=== PATIENT | female | born 1955 | race Caucasian/White ===

== ENCOUNTER 2019-05-28 10:19 | Emergency (ER) | payer MEDICAID ==
--- NOTE | 2019-05-28 11:24 | EDM.PDOC ---
ED HPI GENERAL MEDICAL PROBLEM - General Chief Complaint: General Stated Complaint: NOT AWARE OF SURROUNDINGS Time Seen by Provider: 05/28/19 10:40 Source of Information: Reports: Patient, Family (Daughter) History Limitations: Reports: Altered Mental Status (Patient is a poor historian ) - History of Present Illness INITIAL COMMENTS - FREE TEXT/NARRATIVE: Mrs. Dominguez is a very pleasant 64-year-old woman with a past medical history significant for paroxysmal atrial fibrillation, CHF, likely asthma, hepatitis C , started on treatment in February 2019, and cirrhosis, who is now brought to the ED by her daughter Robina, who tells me that she moved her mother up from [place], [place] in April, shortly after she got out of the hospital, where she was told that she likely had Stage III liver cancer. She has established with a PCP here in [place] and had some imaging studies performed, but has not yet undergone any biopsies or been assigned an Oncologist. Robina tells me that the patient has had 3 to 4 days of progressively worsening slurred speech, confusion, and poor memory. For example, the patient has twice thought that she had close on when she did not. She urinated on the bathroom floor, apparently thinking that she was on the toilet, she took dishes into the bathroom, apparently thinking it was the kitchen, and she has been sleeping up to 15 hours/day. Her symptoms have become even more severe over the past 48 hours. The patient reports having some chills, but no fever. She has had nausea, but no emesis. She reports pelvic cramps that feel much like menstrual cramps, and she reports urinary urgency, although no dysuria. The patient's daughter tells me, however, that the patient's urine is malodorous. No recent cough, dyspnea, constipation, diarrhea, weight gain or weight loss, bloody bowel movements or black bowel movements, joint aches, headaches, or rashes. Here in the ED, the patient is found to be hemodynamically stable, afebrile, saturating 100% on room air. The patient's PCP is Dr. Delgado Feliciano. She has an appointment to see Dr. Feliciano on 06/05/2019. - Related Data Allergies Allergy/AdvReac Type Severity Reaction Status Date / Time No Known Allergies Allergy Verified 05/28/19 10:40 Home Meds: Home Meds Cyclobenzaprine [Flexeril] 5 mg PO TID PRN 05/28/19 [History] Diclofenac Sodium [Voltaren 1% Gel] 1 appful TOP QID PRN 05/28/19 [History] Furosemide [Lasix] 20 mg PO DAILY 05/28/19 [History] Gabapentin [Neurontin] 1,200 mg PO TID 05/28/19 [History] Lactulose 10 ml PO TID 05/28/19 [History] Lidocaine 5% [Lidoderm 5%] 1 patch TOP Q12HR PRN 05/28/19 [History] Melatonin 10 mg PO QPM 05/28/19 [History] Pantoprazole [ProTONIX] 40 mg PO DAILY 05/28/19 [History] Spironolactone [Aldactone] 50 mg PO DAILY 05/28/19 [History] hydrOXYzine HCL [hydrOXYzine] 25 mg PO BID 05/28/19 [History] oxyCODONE 5 mg PO Q8HR PRN 05/28/19 [History] Past Medical History Cardiovascular History: Reports: Afib (paroxysmal), Heart Failure Respiratory History: Reports: Asthma (suspected, not tested) Gastrointestinal History: Reports: Cirrhosis, GERD, PUD Genitourinary History: Reports: Urinary Incontinence (stress incontinence) Musculoskeletal History: Reports: Arthritis Neurological History: Reports: TIA (x 2) Psychiatric History: Reports: Anxiety Oncologic (Cancer) History: Reports: Liver (suspected Stage III) - Infectious Disease History Infectious Disease History: Reports: Hepatitis C - Past Surgical History HEENT Surgical History: Reports: Oral Surgery (edentulous) GI Surgical History: Reports: Bariatric Procedure (gastric bypass x 2?) Female Surgical History: Reports: Tubal Ligation Social & Family History - Family History Family Medical History: Noncontributory - Tobacco Use Smoking Status *Q: Current Some Day Smoker Tobacco Use Within Last Twelve Months: Vaping Years of Tobacco use: 46 Packs/Tins Daily Comment: Down from 04/05 ppd - Caffeine Use Caffeine Use: Reports: Soda, Tea - Alcohol Use Alcohol Use History: Yes Alcohol Use Frequency: Rarely - Recreational Drug Use Recreational Drug Use: Yes Drug Use in Last 12 Months: Yes Recreational Drug Type: Reports: Marijuana/Hashish (last smoked 04/15/2019), Methamphetamine (last smoked, injected 2006) - Living Situation & Occupation Living situation: Reports: ( incarcerated), with Family (Daughter , her , their 2 kids) Occupation: Unemployed ED ROS GENERAL - Review of Systems Review Of Systems: Comprehensive ROS is negative, except as noted in HPI. - Physical Exam Exam: See Below Exam Limited By: No Limitations General Appearance: No Apparent Distress, Other (Awake, slightly lethargic) Eye Exam: Bilateral Eye: EOMI, Normal Inspection, PERRL Ears: Normal External Exam, Normal Canal, Hearing Grossly Normal, Normal TMs Nose: Normal Inspection, Normal Mucosa, No Blood Throat/Mouth: Normal Inspection, Normal Lips, Normal Gums, Normal Oropharynx, Normal Voice, No Airway Compromise, Other (Edentulous) Head Exam: Atraumatic, Normocephalic Neck: Normal Inspection, Supple, Non-Tender, Full Range of Motion. No: Lymphadenopathy (L), Lymphadenopathy (R) Respiratory/Chest: No Respiratory Distress, Lungs Clear, Normal Breath Sounds, No Accessory Muscle Use Cardiovascular: Normal Peripheral Pulses, Regular Rate, Rhythm, No Edema, No Gallop, No JVD, No Murmur, No Rub GI/Abdominal: Normal Bowel Sounds, Soft, Non-Tender, No Organomegaly, No Distention, No Abnormal Bruit, No Mass (Female) Exam: Deferred Rectal (Female) Exam: Deferred Neuro Exam (Abbreviated): Alert, CN II-XII Intact (claimed diplopia, and had some difficulty following some commands), No Motor/Sensory Deficits, Confused, Memory Loss Recent Events, Other (Generally weak) Back Exam: Normal Inspection, Full Range of Motion, NT Extremities: Normal Inspection, Normal Range of Motion, No Pedal Edema, Normal Capillary Refill Psychiatric: Normal Affect Skin Exam: Warm, Dry, Intact, Normal Color, No Rash EKG INTERPRETATION EKG Date: 05/28/19 Time: 11:22 Rhythm: NSR Rate (Beats/Min): 88 [place]: Normal P-Wave: Present QRS: Normal ST-T: Normal QT: Normal Comparison: NA - No Prior EKG Course - Vital Signs Last Recorded V/S: Last Vital Signs Temp 36.9 C 05/28/19 10:35 Pulse 93 05/28/19 10:35 Resp 13 05/28/19 10:35 BP 113/85 05/28/19 10:35 Pulse Ox 100 05/28/19 10:35 - Orders/Labs/Meds Orders: Active Orders 24 hr Category Date Time Status EKG Documentation Completion [RC] STAT Care 05/28/19 11:14 Active CULTURE URINE [RM] Stat Lab 05/28/19 16:19 Ordered Labs: Laboratory Tests 05/28/19 05/28/19 05/28/19 Range/Units 11:31 11:31 11:31 WBC 4.43 (3.98-10.04) K/mm3 RBC 4.53 (3.98-5.22) M/mm3 Hgb 14.6 (11.2-15.7) gm/dl Hct 44.2 (34.1-44.9) % MCV 97.6 H (79.4-94.8) fl MCH 32.2 (25.6-32.2) pg MCHC 33.0 (32.2-35.5) g/dl RDW Std Deviation 61.3 H (36.4-46.3) fL Plt Count 128 L (182-369) K/mm3 MPV 10.5 (9.4-12.3) fl Neutrophils % (Manual) 57 (40-60) % Band Neutrophils % 0 (0-10) % Lymphocytes % (Manual) 30 (20-40) % Atypical Lymphs % 0 % Monocytes % (Manual) 11 H (2-10) % Eosinophils % (Manual) 2 (0.7-5.8) % Basophils % (Manual) 0 L (0.1-1.2) Platelet Estimate Adequate Anisocytosis 1+ slight RBC Morph Comment Not Reportable PT (9.7-12.0) SECONDS INR APTT (22-31) SECONDS Sodium 141 (136-145) mEq/L Potassium 4.3 (3.5-5.1) mEq/L Chloride 107 (98-107) mEq/L Carbon Dioxide 21 (21-32) mEq/L Anion Gap 17.3 H (5-15) BUN 15 (7-18) mg/dL Creatinine 1.0 (0.55-1.02) mg/dL Est Cr Clr Drug Dosing 48.25 mL/min Estimated GFR (MDRD) 56 (>60) mL/min BUN/Creatinine Ratio 15.0 (14-18) Glucose 81 (80-115) mg/dL Calcium 9.0 (8.5-10.1) mg/dL Magnesium 1.8 (1.8-2.4) mg/dl Total Bilirubin 1.0 (0.2-1.0) mg/dL AST 226 H (15-37) U/L ALT 158 H (14-59) U/L Alkaline Phosphatase 170 H (46-116) U/L Ammonia (11-32) umol/L Troponin I < 0.017 (0.00-0.056) ng/mL Total Protein 8.5 H (6.4-8.2) g/dl Albumin 2.6 L (3.4-5.0) g/dl Globulin 5.9 gm/dL Albumin/Globulin Ratio 0.4 L (1-2) TSH 3rd Generation 2.240 (0.358-3.74) uIU/mL Urine Color (Yellow) Urine Appearance (Clear) Urine pH (5.0-8.0) Ur Specific Ione (1.005-1.030) Urine Protein (Negative) Urine Glucose (UA) (Negative) Urine Ketones (Negative) Urine Occult Blood (Negative) Urine Nitrite (Negative) Urine Bilirubin (Negative) Urine Urobilinogen (0.2-1.0) Ur Leukocyte Esterase (Negative) Urine RBC (0-5) /hpf Urine WBC (0-5) /hpf Ur Squamous Epith Cells (0-5) /hpf Urine Bacteria (FEW) /hpf Urine Mucus (FEW) /hpf Salicylates 0.1 L (2.8-20) mg/dL Urine Opiates Screen (BEOLVW=052) Ur Buprenorphine Scrn (CUTOFF=10) Ur Oxycodone Screen (FWX0DI=416) Urine Methadone Screen (ZPPSYB=448) Ur Propoxyphene Screen (OQODPA=916) Acetaminophen 4 L (10-30) ug/mL Ur Barbiturates Screen (OEFYPR=319) Ur Tricyclics Screen (GYHOYH=509) Ur Phencyclidine Scrn (CUTOFF=25) Ur Amphetamine Screen (HVNWGK=619) U Methamphetamines Scrn (PHMHPN=259) U Benzodiazepines Scrn (PWXUFW=674) U Cocaine Metab Screen (MUOBJI=730) U Marijuana (THC) Screen (CUTOFF=50) Ethyl Alcohol 0.00 (0.00) gm% 05/28/19 05/28/19 05/28/19 Range/Units 11:31 11:31 12:20 WBC (3.98-10.04) K/mm3 RBC (3.98-5.22) M/mm3 Hgb (11.2-15.7) gm/dl Hct (34.1-44.9) % MCV (79.4-94.8) fl MCH (25.6-32.2) pg MCHC (32.2-35.5) g/dl RDW Std Deviation (36.4-46.3) fL Plt Count (182-369) K/mm3 MPV (9.4-12.3) fl Neutrophils % (Manual) (40-60) % Band Neutrophils % (0-10) % Lymphocytes % (Manual) (20-40) % Atypical Lymphs % % Monocytes % (Manual) (2-10) % Eosinophils % (Manual) (0.7-5.8) % Basophils % (Manual) (0.1-1.2) Platelet Estimate Anisocytosis RBC Morph Comment PT 13.2 H (9.7-12.0) SECONDS INR 1.23 APTT 28 (22-31) SECONDS Sodium (136-145) mEq/L Potassium (3.5-5.1) mEq/L Chloride (98-107) mEq/L Carbon Dioxide (21-32) mEq/L Anion Gap (5-15) BUN (7-18) mg/dL Creatinine (0.55-1.02) mg/dL Est Cr Clr Drug Dosing mL/min Estimated GFR (MDRD) (>60) mL/min BUN/Creatinine Ratio (14-18) Glucose (80-115) mg/dL Calcium (8.5-10.1) mg/dL Magnesium (1.8-2.4) mg/dl Total Bilirubin (0.2-1.0) mg/dL AST (15-37) U/L ALT (14-59) U/L Alkaline Phosphatase (46-116) U/L Ammonia 54 H (11-32) umol/L Troponin I (0.00-0.056) ng/mL Total Protein (6.4-8.2) g/dl Albumin (3.4-5.0) g/dl Globulin gm/dL Albumin/Globulin Ratio (1-2) TSH 3rd Generation (0.358-3.74) uIU/mL Urine Color Yellow (Yellow) Urine Appearance Clear (Clear) Urine pH 7.0 (5.0-8.0) Ur Specific [place] 1.025 (1.005-1.030) Urine Protein Negative (Negative) Urine Glucose (UA) Negative (Negative) Urine Ketones Negative (Negative) Urine Occult Blood Negative (Negative) Urine Nitrite Negative (Negative) Urine Bilirubin Negative (Negative) Urine Urobilinogen 0.2 (0.2-1.0) Ur Leukocyte Esterase Negative (Negative) Urine RBC 0-5 (0-5) /hpf Urine WBC 0-5 (0-5) /hpf Ur Squamous Epith Cells 0-5 (0-5) /hpf Urine Bacteria Many H (FEW) /hpf Urine Mucus Not seen (FEW) /hpf Salicylates (2.8-20) mg/dL Urine Opiates Screen (JMVQSJ=643) Ur Buprenorphine Scrn (CUTOFF=10) Ur Oxycodone Screen (UAY9IA=026) Urine Methadone Screen (JEZXNS=982) Ur Propoxyphene Screen (LUQGFA=526) Acetaminophen (10-30) ug/mL Ur Barbiturates Screen (YJYTPK=179) Ur Tricyclics Screen (MARZHM=475) Ur Phencyclidine Scrn (CUTOFF=25) Ur Amphetamine Screen (UHOYFA=491) U Methamphetamines Scrn (WOPRGW=401) U Benzodiazepines Scrn (MFWIJO=251) U Cocaine Metab Screen (COJDYX=561) U Marijuana (THC) Screen (CUTOFF=50) Ethyl Alcohol (0.00) gm% 05/28/19 Range/Units 12:32 WBC (3.98-10.04) K/mm3 RBC (3.98-5.22) M/mm3 Hgb (11.2-15.7) gm/dl Hct (34.1-44.9) % MCV (79.4-94.8) fl MCH (25.6-32.2) pg MCHC (32.2-35.5) g/dl RDW Std Deviation (36.4-46.3) fL Plt Count (182-369) K/mm3 MPV (9.4-12.3) fl Neutrophils % (Manual) (40-60) % Band Neutrophils % (0-10) % Lymphocytes % (Manual) (20-40) % Atypical Lymphs % % Monocytes % (Manual) (2-10) % Eosinophils % (Manual) (0.7-5.8) % Basophils % (Manual) (0.1-1.2) Platelet Estimate Anisocytosis RBC Morph Comment PT (9.7-12.0) SECONDS INR APTT (22-31) SECONDS Sodium (136-145) mEq/L Potassium (3.5-5.1) mEq/L Chloride (98-107) mEq/L Carbon Dioxide (21-32) mEq/L Anion Gap (5-15) BUN (7-18) mg/dL Creatinine (0.55-1.02) mg/dL Est Cr Clr Drug Dosing mL/min Estimated GFR (MDRD) (>60) mL/min BUN/Creatinine Ratio (14-18) Glucose (80-115) mg/dL Calcium (8.5-10.1) mg/dL Magnesium (1.8-2.4) mg/dl Total Bilirubin (0.2-1.0) mg/dL AST (15-37) U/L ALT (14-59) U/L Alkaline Phosphatase (46-116) U/L Ammonia (11-32) umol/L Troponin I (0.00-0.056) ng/mL Total Protein (6.4-8.2) g/dl Albumin (3.4-5.0) g/dl Globulin gm/dL Albumin/Globulin Ratio (1-2) TSH 3rd Generation (0.358-3.74) uIU/mL Urine Color (Yellow) Urine Appearance (Clear) Urine pH (5.0-8.0) Ur Specific [place] (1.005-1.030) Urine Protein (Negative) Urine Glucose (UA) (Negative) Urine Ketones (Negative) Urine Occult Blood (Negative) Urine Nitrite (Negative) Urine Bilirubin (Negative) Urine Urobilinogen (0.2-1.0) Ur Leukocyte Esterase (Negative) Urine RBC (0-5) /hpf Urine WBC (0-5) /hpf Ur Squamous Epith Cells (0-5) /hpf Urine Bacteria (FEW) /hpf Urine Mucus (FEW) /hpf Salicylates (2.8-20) mg/dL Urine Opiates Screen Negative (RIVVVA=665) Ur Buprenorphine Scrn Negative (CUTOFF=10) Ur Oxycodone Screen Presumptive positive H (KPE5BN=572) Urine Methadone Screen Negative (OMQCXF=746) Ur Propoxyphene Screen Negative (AWBHKL=253) Acetaminophen (10-30) ug/mL Ur Barbiturates Screen Negative (IABOLZ=428) Ur Tricyclics Screen Negative (JGKJQN=603) Ur Phencyclidine Scrn Negative (CUTOFF=25) Ur Amphetamine Screen Negative (MCHIJR=852) U Methamphetamines Scrn Negative (ZAHIFT=262) U Benzodiazepines Scrn Negative (CFMZKR=925) U Cocaine Metab Screen Negative (SFPFKK=647) U Marijuana (THC) Screen Presumptive positive H (CUTOFF=50) Ethyl Alcohol (0.00) gm% - Re-Assessments/Exams Free Text/Narrative Re-Assessment/Exam: 05/28/19 11:17 With a history of cirrhosis and now 3 to 4 days of progressively worsening confusion, the patient is most likely suffering from hepatic encephalopathy. I have ordered a work-up that includes blood work, a urinalysis, a urine drug screen, and an ECG. At this time, however, I do not see an indication for any imaging studies, but I did order a CT of her head because of her history of metastatic disease, and her inability to follow all of the instructions for her neurologic examination. 05/28/19 12:43 CT of the head without contrast as read by Dr. Griggs as: 1. Nothing acute is appreciated on noncontrast head CT exam. 05/28/19 13:46 The patient's CBC is remarkable for platelets depressed at 128, and is otherwise unremarkable. Her CMP is remarkable for an anion gap slightly elevated at 17.3, but with a bicarbonate normal at 21. Her AST/ALT are elevated at 226/158, and her alkaline phosphatase is modestly elevated at 170. The remainder of her CMP is unremarkable. Her magnesium level is within normal limits at 1.8. Her troponin is undetectably low. Her TSH is within normal limits at 2.240. Her ammonia level is elevated at 54. Her acetaminophen level is within normal limits at 4. Her salicylate level is within normal limits at 0.1. Her EtOH level is 0.00. Her PT is mildly elevated at 13.2, and her INR is elevated at 1.32. Her urinalysis is remarkable for many bacteria, but is otherwise unremarkable. Her urine drug screen is positive for both oxycodone and marijuana, but is otherwise negative. 05/28/19 14:32 Test results discussed with the patient and her daughter, Robina. The patient' s work-up indicates that the patient's altered mental status is likely due to a combination of hepatic encephalopathy and delirium oxycodone and Flexeril, as both are hepatically metabolized. The patient is currently on lactulose 10 ml times a day, and oxycodone 5 mg Q 8 hours. She is also prescribed Flexeril which she is given infrequently, although she was given a dose this morning. Robina states that she does not know the specific diagnosis for which the patient is given oxycodone, only that she cannot move if she does not take it. I would like to see the patient admitted or placed into observation while she is given an increased dose of lactulose, to see if her mental status improves, however, I do not know if the patient meets criteria. When I discussed this with Robina, she became hostile. She would like to see her mother admitted, but only to this hospital, not to [place], and if we do not have availability at this hospital, we need to figure it out. If we transfer her to [place], she would need to go by ambulance, and we would need to guarantee that she would be given transportation back here after discharge, because Robina is not driving to [place]. We contacted Dr. Trevizo. She will come to the ED to discuss the case. 05/28/19 16:[address] Trevizo here in the ED, at 16:15. She does not feel that the patient meets criterion for admission. She recommends that the patient increase her lactulose to 20 ml TID and follow-up with Dr. Feliciano at her previously scheduled appointment on 06/05/2019. She would not treat the bacteriuria with an antibiotic, but does agree with a urine culture. 05/28/19 16:25 The above was discussed with the patient's daughter, Robina, over the phone. She had left to go home to take medications, but will return to collect her mother. Departure - Departure Time of Disposition: 16:25 Disposition: Home, Self-Care 01 Condition: Good Clinical Impression: Hepatic encephalopathy, Opioid intoxication delirium - Discharge Information *PRESCRIPTION DRUG MONITORING PROGRAM REVIEWED*: Not Applicable *COPY OF PRESCRIPTION DRUG MONITORING REPORT IN PATIENT DIALLO: Not Applicable Referrals: Delgado Feliciano MD [Primary Care Provider] - Forms: ED Department Discharge Additional Instructions: Ms. Dominguez was seen in the emergency room for speech, confusion and poor memory. Work-up in the ER included blood work, a urinalysis, a urine drug screen, a CT scan of her head, and an ECG. Her blood work was found to be consistent with cirrhosis, as well as hepatic encephalopathy = toxins building up in the blood because the liver is not functioning properly. Her ammonia level was 54. Her drug screen was positive for both oxycodone and marijuana. Her urine showed many bacteria, but was otherwise normal. The remainder of her work-up was unremarkable. A sample of her urine has been sent for culture, but antibiotics are not indicated at this time. Based on her history, physical exam, and ER tests, Ms. Dominguez is most likely suffering from a combination of hepatic encephalopathy and delirium from both oxycodone and Flexeril, as both oxycodone and Flexeril are metabolized by the liver, and when the liver is not functioning properly, both of those medicines and their metabolites build up. Her case was discussed with the Hospitalist, and, unfortunately, the Hospitalist did not feel that Ms. Dominguez met criteria for admission to the hospital. We recommend that you increase her lactulose to 20 mL 3 times a day. We recommend that you consider decreasing the oxycodone to 5 mg twice a day, instead of 3 times a day, and discontinue the Flexeril altogether. Have her follow-up with Dr. Feliciano at her previously scheduled appointment on 06/05/2019. If any other problems, please do not hesitate to return Ms. Dominguez to the ER. Sepsis Event Note - Evaluation Sepsis Screening Result: No Definite Risk - Focused Exam Vital Signs: Vital Signs Temp Pulse Resp BP Pulse Ox 05/28/19 10:35 36.9 C 93 13 113/85 100 Date Exam was Performed: 05/28/19 Time Exam was Performed: 16:20 - My Orders Last 24 Hours: My Active Orders 05/28/19 11:14 EKG Documentation Completion [RC] STAT 05/28/19 16:19 CULTURE URINE [RM] Stat - Assessment/Plan Last 24 Hours: My Active Orders 05/28/19 11:14 EKG Documentation Completion [RC] STAT 05/28/19 16:19 CULTURE URINE [RM] Stat
--- NOTE | 2019-05-28 12:14 | CT ---
Head CT Technique: Multiple axial sections through the brain were obtained. Intravenous contrast was not utilized. Comparison: No prior intracranial imaging is available. Findings: Ventricles along with basal cisterns and sulci over the convexities are within normal limits for the patient's age. No abnormal parenchymal densities are seen. No evidence of intracranial hemorrhage. No midline shift or mass-effect is seen. Bone window settings were reviewed which show no acute calvarial abnormality. Visualized mastoid sinuses and visualized paranasal sinuses are clear. Impression: 1. Nothing acute is appreciated on noncontrast head CT exam. Diagnostic code #1 This report was dictated in [place] Standard Time
[2019-05-28 12:34] LABS: ACETAMINOPHEN 4 ug/mL (10-30)
== END 2019-05-28 17:08 | disposition home or self-care (01) ==
LOC: JD.ED 10:19
DX: F11.121 Opioid abuse with intoxication delirium (principal); K72.90 Hepatic failure, unspecified without coma; I48.0 Paroxysmal atrial fibrillation; I50.9 Heart failure, unspecified; K21.9 Gastro-esophageal reflux disease without esophagitis; M19.90 Unspecified osteoarthritis, unspecified site; F41.9 Anxiety disorder, unspecified; Z86.73 Personal history of transient ischemic attack (TIA), and cerebral infarction without residual deficits; F17.210 Nicotine dependence, cigarettes, uncomplicated; Z79.899 Other long term (current) drug therapy
CPT/HCPCS: 36415; 70450; 70450-26; 80053; 80306; 80307; 81001; 82140; 83735; 84443; 84484; 85007; 85027; 85610; 85730; 87086; 93005; 93010; 99284; 99285-25

== ENCOUNTER 2019-07-06 13:01 | Emergency (ER) | payer MEDICAID ==
--- NOTE | 2019-07-06 14:10 | EDM.PDOCBH ---
ED HPI GENERAL MEDICAL PROBLEM - General Chief Complaint: Behavioral/Psych Stated Complaint: SUCICAL IDEATIONS Time Seen by Provider: 07/06/19 13:06 Source of Information: Reports: Patient History Limitations: Reports: No Limitations - History of Present Illness INITIAL COMMENTS - FREE TEXT/NARRATIVE: Patient is a 64-year-old female who presents to the emergency department with complaints of suicidal ideation. She states that she is currently living with her goddaughter and has a diagnosis of stage III liver cancer. She feels that she is a burden to her goddaughter. She states that she wants to go back to [place] to be with her who was recently released from [facility], however she has no way to get there. She does not have a specific plan of how she would like to harm herself, however states if she has to go back to that house she will take some pills. She states that if she was in [place], she would just overdose on cocaine, however she has no contacts here to obtain cocaine. She states that prior to coming to the ER she saw her primary care provider, Dr. Farmer, who recommended that she come to the ER. Patient states that she has tried to harm herself in the past, however it is been about 15 years. She states at that time she was in a similar situation where she felt like she was a burden to others. At that time she took "3 handfuls of aspirin ". Generalized Pain Score (Numeric/FACES): 6 - Related Data Allergies Allergy/AdvReac Type Severity Reaction Status Date / Time No Known Allergies Allergy Verified 07/06/19 13:29 Home Meds: Home Meds Diclofenac Sodium [Voltaren 1% Gel] 1 appful TOP QID PRN 05/28/19 [History] Furosemide [Lasix] 20 mg PO DAILY 05/28/19 [History] Gabapentin [Neurontin] 1,200 mg PO TID 05/28/19 [History] Lactulose 10 ml PO TID 05/28/19 [History] Lidocaine 5% [Lidoderm 5%] 1 patch TOP Q12HR PRN 05/28/19 [History] Melatonin 10 mg PO QPM 05/28/19 [History] Pantoprazole [ProTONIX] 40 mg PO DAILY 05/28/19 [History] Spironolactone [Aldactone] 50 mg PO DAILY 05/28/19 [History] hydrOXYzine HCL [hydrOXYzine] 50 mg PO BID 05/28/19 [History] oxyCODONE 5 mg PO Q8HR PRN 05/28/19 [History] tiZANidine HCl [Tizanidine HCl] 1 cap PO DAILY 07/06/19 [History] Past Medical History Cardiovascular History: Reports: Afib, Heart Failure Respiratory History: Reports: Asthma Gastrointestinal History: Reports: Cirrhosis, GERD, PUD Other Gastrointestinal History: ulcer Genitourinary History: Reports: Urinary Incontinence EARLY INTERVENTIONIST History: Reports: Musculoskeletal History: Reports: Arthritis Other Musculoskeletal History: degenerative bone disease Neurological History: Reports: TIA Other Neuro History: medically induced coma for 10 days Psychiatric History: Reports: Anxiety Hematologic History: Reports: Other (See Below) Other Hematologic History: Hep C Immunologic History: Reports: Immunosuppression Oncologic (Cancer) History: Reports: Liver - Infectious Disease History Infectious Disease History: Reports: Hepatitis C - Past Surgical History HEENT Surgical History: Reports: Oral Surgery GI Surgical History: Reports: Bariatric Procedure Female Surgical History: Reports: Tubal Ligation Social & Family History - Family History Family Medical History: Noncontributory - Tobacco Use Smoking Status *Q: Current Some Day Smoker Years of Tobacco use: 35 Packs/Tins Daily: 0.2 - Caffeine Use Caffeine Use: Reports: Soda, Tea - Recreational Drug Use Recreational Drug Use: Yes Drug Use in Last 12 Months: Yes Recreational Drug Type: Reports: Amphetamines (Speed), Marijuana/Hashish Recreational Drug Use Frequency: Weekly - Living Situation & Occupation Living situation: Reports: ( incarcerated), with Family (Daughter , her , their 2 kids) Occupation: Unemployed ED ROS GENERAL - Review of Systems Review Of Systems: Comprehensive ROS is negative, except as noted in HPI. ED EXAM, BEHAVIORAL HEALTH - Physical Exam Exam: See Below Exam Limited By: No Limitations General Appearance: Alert, WD/WN, No Apparent Distress Respiratory/Chest: No Respiratory Distress, Lungs Clear, Normal Breath Sounds, No Accessory Muscle Use, Chest Non-Tender Cardiovascular: Normal Peripheral Pulses, Regular Rate, Rhythm, No Edema, No Gallop, No JVD, No Murmur, No Rub Neurological: Alert, Normal Mood/Affect, CN II-XII Intact, Normal Cognition, Normal Gait, Normal Reflexes, No Motor/Sensory Deficits, Oriented x 3 Psychiatric: Alert, Depressed Mood, Flat Affect, Suicidal Plan, Suicidal Thoughts. No: Auditory Hallucinations, Visual Hallucinations, Paranoid Thoughts Skin Exam: Warm, Dry, Intact, Normal color, No rash EKG INTERPRETATION EKG Date: 07/06/19 Time: 14:07 Rhythm: NSR Rate (Beats/Min): 90 Tyner: Normal P-Wave: Present QRS: Normal ST-T: Normal QT: Normal EKG Interpretation Comments: sinus dysrhythmia Single PAC EKG interpreted by Dr. Beth MD. COURSE, BEHAVIORAL HEALTH COMP - Course Vital Signs: Last Vital Signs Temp 99.1 F 07/06/19 13:19 Pulse 100 07/06/19 13:19 Resp 22 H 07/06/19 13:19 BP 141/67 H 07/06/19 13:19 Pulse Ox 100 07/06/19 13:19 Orders, Labs, Meds: Active Orders 24 hr Category Date Time Status EKG Documentation Completion [RC] STAT Care 07/06/19 13:59 Active CULTURE URINE [RM] Stat Lab 07/06/19 15:16 Received Suicide Precautions [OM.PC] Routine Oth 07/06/19 13:59 Ordered Laboratory Tests 07/06/19 07/06/19 07/06/19 Range/Units 14:35 14:35 14:35 WBC 5.21 (3.98-10.04) K/mm3 RBC 4.03 (3.98-5.22) M/mm3 Hgb 13.3 (11.2-15.7) gm/dl Hct 39.9 (34.1-44.9) % MCV 99.0 H (79.4-94.8) fl MCH 33.0 H (25.6-32.2) pg MCHC 33.3 (32.2-35.5) g/dl RDW Std Deviation 60.1 H (36.4-46.3) fL Plt Count 182 (182-369) K/mm3 MPV 10.6 (9.4-12.3) fl Neutrophils % (Manual) 65 H (40-60) % Band Neutrophils % 0 (0-10) % Lymphocytes % (Manual) 34 (20-40) % Atypical Lymphs % 0 % Monocytes % (Manual) 1 L (2-10) % Eosinophils % (Manual) 0 L (0.7-5.8) % Basophils % (Manual) 0 L (0.1-1.2) Platelet Estimate Adequate Poikilocytosis 1+ slight Anisocytosis 1+ Tear Drop Cells Few Ovalocytes 1+ slight RBC Morph Comment Not Reportable Sodium 140 (136-145) mEq/L Potassium 4.4 (3.5-5.1) mEq/L Chloride 109 H (98-107) mEq/L Carbon Dioxide 21 (21-32) mEq/L Anion Gap 14.4 (5-15) BUN 20 H (7-18) mg/dL Creatinine 1.1 H (0.55-1.02) mg/dL Est Cr Clr Drug Dosing 45.79 mL/min Estimated GFR (MDRD) 50 (>60) mL/min BUN/Creatinine Ratio 18.2 H (14-18) Glucose 91 (80-115) mg/dL Calcium 8.5 (8.5-10.1) mg/dL Total Bilirubin 1.1 H (0.2-1.0) mg/dL AST 82 H (15-37) U/L ALT 61 H (14-59) U/L Alkaline Phosphatase 132 H (46-116) U/L Ammonia (11-32) umol/L Total Protein 7.8 (6.4-8.2) g/dl Albumin 2.7 L (3.4-5.0) g/dl Globulin 5.1 gm/dL Albumin/Globulin Ratio 0.5 L (1-2) TSH 3rd Generation 1.682 (0.358-3.74) uIU/mL Urine Color (Yellow) Urine Appearance (Clear) Urine pH (5.0-8.0) Ur Specific [place] (1.005-1.030) Urine Protein (Negative) Urine Glucose (UA) (Negative) Urine Ketones (Negative) Urine Occult Blood (Negative) Urine Nitrite (Negative) Urine Bilirubin (Negative) Urine Urobilinogen (0.2-1.0) Ur Leukocyte Esterase (Negative) Urine RBC (0-5) /hpf Urine WBC (0-5) /hpf Ur Squamous Epith Cells (0-5) /hpf Urine Bacteria (FEW) /hpf Urine Mucus (FEW) /hpf Salicylates < 0.2 L (2.8-20) mg/dL Urine Opiates Screen (JUQWIJ=593) Ur Buprenorphine Scrn (CUTOFF=10) Ur Oxycodone Screen (AUQ1ZM=665) Urine Methadone Screen (WQMLBX=338) Ur Propoxyphene Screen (BKEHMQ=576) Acetaminophen 28 (10-30) ug/mL Ur Barbiturates Screen (PBECFO=070) Ur Tricyclics Screen (NSAUBV=230) Ur Phencyclidine Scrn (CUTOFF=25) Ur Amphetamine Screen (UOMRVW=572) U Methamphetamines Scrn (TLWJMZ=081) U Benzodiazepines Scrn (ZZUDDU=913) U Cocaine Metab Screen (SJTBFS=066) U Marijuana (THC) Screen (CUTOFF=50) Ethyl Alcohol 0.00 (0.00) gm% 07/06/19 07/06/19 07/06/19 Range/Units 15:13 15:20 15:49 WBC (3.98-10.04) K/mm3 RBC (3.98-5.22) M/mm3 Hgb (11.2-15.7) gm/dl Hct (34.1-44.9) % MCV (79.4-94.8) fl MCH (25.6-32.2) pg MCHC (32.2-35.5) g/dl RDW Std Deviation (36.4-46.3) fL Plt Count (182-369) K/mm3 MPV (9.4-12.3) fl Neutrophils % (Manual) (40-60) % Band Neutrophils % (0-10) % Lymphocytes % (Manual) (20-40) % Atypical Lymphs % % Monocytes % (Manual) (2-10) % Eosinophils % (Manual) (0.7-5.8) % Basophils % (Manual) (0.1-1.2) Platelet Estimate Poikilocytosis Anisocytosis Tear Drop Cells Ovalocytes RBC Morph Comment Sodium (136-145) mEq/L Potassium (3.5-5.1) mEq/L Chloride (98-107) mEq/L Carbon Dioxide (21-32) mEq/L Anion Gap (5-15) BUN (7-18) mg/dL Creatinine (0.55-1.02) mg/dL Est Cr Clr Drug Dosing mL/min Estimated GFR (MDRD) (>60) mL/min BUN/Creatinine Ratio (14-18) Glucose (80-115) mg/dL Calcium (8.5-10.1) mg/dL Total Bilirubin (0.2-1.0) mg/dL AST (15-37) U/L ALT (14-59) U/L Alkaline Phosphatase (46-116) U/L Ammonia 56 H (11-32) umol/L Total Protein (6.4-8.2) g/dl Albumin (3.4-5.0) g/dl Globulin gm/dL Albumin/Globulin Ratio (1-2) TSH 3rd Generation (0.358-3.74) uIU/mL Urine Color Yellow (Yellow) Urine Appearance Slt cloudy H (Clear) Urine pH 8.5 H (5.0-8.0) Ur Specific [place] 1.015 (1.005-1.030) Urine Protein Negative (Negative) Urine Glucose (UA) Negative (Negative) Urine Ketones Negative (Negative) Urine Occult Blood Negative (Negative) Urine Nitrite Negative (Negative) Urine Bilirubin Negative (Negative) Urine Urobilinogen 1.0 (0.2-1.0) Ur Leukocyte Esterase 1+ H (Negative) Urine RBC 0-5 (0-5) /hpf Urine WBC 30-40 H (0-5) /hpf Ur Squamous Epith Cells 10-20 H (0-5) /hpf Urine Bacteria Many H (FEW) /hpf Urine Mucus Not seen (FEW) /hpf Salicylates (2.8-20) mg/dL Urine Opiates Screen Negative (GQIRRF=773) Ur Buprenorphine Scrn Negative (CUTOFF=10) Ur Oxycodone Screen Negative (MOK2GK=016) Urine Methadone Screen Negative (FEGGEG=437) Ur Propoxyphene Screen Negative (IOLVLG=428) Acetaminophen (10-30) ug/mL Ur Barbiturates Screen Negative (QQCYLR=775) Ur Tricyclics Screen Negative (GPXJKQ=100) Ur Phencyclidine Scrn Negative (CUTOFF=25) Ur Amphetamine Screen Negative (VRFLTM=120) U Methamphetamines Scrn Negative (UCUBOH=888) U Benzodiazepines Scrn Negative (ZDQVUM=403) U Cocaine Metab Screen Negative (IQAJUI=377) U Marijuana (THC) Screen Presumptive positive H (CUTOFF=50) Ethyl Alcohol (0.00) gm% Re-Assessment/Re-Exam: 07/06/2019 1515 Placement social sciences instructor, Dejah, also visited with the patient. We are in agreement that she would benefit from a psychiatric evaluation. Emergency hold paperwork has been initiated. Spoke with Dr. Marquez at [facility] and [facility] in [place]. Patient has been accepted for direct admission to the psychiatric floor. Dejah will contact [facility] to see if transport can be arranged. 07/06/2019 1640 Hematology was significant for a mildly elevated total bilirubin at 1.1, AST 82 , ALT 61, alk phos 132, ammonia 56. Urinalysis was positive for 1+ leukocyte esterase, 30-40 WBCs, 10-20 squamous cells, and many bacteria. Patient has had no dysuria. I have sent this for a culture. We will hold off on treating for UTI until culture results are available. Tox screen was positive for marijuana. Tylenol was elevated at 28. Patient does take 1000 mg of Tylenol twice a day. She states that she did take a dose this morning prior to coming to ER. We are waiting for response from [facility] regarding transport. If they are unable to transfer, we will contact ambulance services to request transport. 07/06/2019 1840 Pt departed for transfer to [facility] via [facility]. Pt went calmly and without event. Departure - Departure Time of Disposition: 16:40 Disposition: DC/Tfer to Psych Hosp/Unit 65 Condition: Fair Clinical Impression: Suicidal ideation - Discharge Information Referrals: Delgado Feliciano MD [Primary Care Provider] - Forms: ED Department Discharge Sepsis Event Note - Evaluation Sepsis Screening Result: No Definite Risk - Focused Exam Vital Signs: Vital Signs Temp Pulse Resp BP Pulse Ox 07/06/19 13:19 99.1 F 100 22 H 141/67 H 100 Date Exam was Performed: 07/06/19 Time Exam was Performed: 20:37 - My Orders Last 24 Hours: My Active Orders 07/06/19 13:59 EKG Documentation Completion [RC] STAT Suicide Precautions [OM.PC] Routine 07/06/19 15:16 CULTURE URINE [RM] Stat - Assessment/Plan Last 24 Hours: My Active Orders 07/06/19 13:59 EKG Documentation Completion [RC] STAT Suicide Precautions [OM.PC] Routine 07/06/19 15:16 CULTURE URINE [RM] Stat
== END 2019-07-06 18:33 ==
LOC: JD.ED 13:01
DX: R45.851 Suicidal ideations (principal); I48.91 Unspecified atrial fibrillation; J45.909 Unspecified asthma, uncomplicated; K21.9 Gastro-esophageal reflux disease without esophagitis; Z79.899 Other long term (current) drug therapy; Z86.73 Personal history of transient ischemic attack (TIA), and cerebral infarction without residual deficits; F17.210 Nicotine dependence, cigarettes, uncomplicated
CPT/HCPCS: 36415; 80053; 80306; 80307; 81001; 82140; 84443; 85007; 85027; 87086; 87088; 87186; 93005; 93010; 99284; 99285-25

== ENCOUNTER 2019-07-14 15:25 | Emergency (ER) | payer MEDICAID ==
[2019-07-14] MEDS ORDERED: Sodium Chloride 0.9% 10 ML Syringe FLUSH PRN (15:29)
--- NOTE | 2019-07-14 15:44 | EDM.PDOCBH ---
ED HPI GENERAL MEDICAL PROBLEM - General Chief Complaint: Behavioral/Psych Stated Complaint: [facility] Time Seen by Provider: 07/14/19 15:27 Source of Information: Reports: EMS, Family History Limitations: Reports: Altered Mental Status - History of Present Illness INITIAL COMMENTS - FREE TEXT/NARRATIVE: The patient presents by [facility] for being unresponsive. She was just released from [facility] a couple days ago. She has not been taking her meds. She will spit them out. Today she would not talk to anyone. She rolled off her bed and she was on the floor when EMS arrived. She would not talk to them and she would not stand up. She was moving all 4 extremities. EMS said the people on scene were not helpful at all. They provided very little information. She has a history of "live cancer" according to records from a few days ago. She was told it was terminal. She was seen here last week and sent to [facility] in [place] because she was suicidal. She is here living with her god daughter and she was depressed. She wanted to go back to [place] where her is. He just got out of [facility]. She has no way of getting down to him. Her eyes are open when she arrives but she will not talk. She will withdraw her arms when trying to do stuff like put on a BP cuff. She smells of urine. Onset: Gradual Duration: Day(s): Improves with: Reports: None Worsens with: Reports: None Associated Symptoms: Reports: No Other Symptoms - Related Data Allergies Allergy/AdvReac Type Severity Reaction Status Date / Time No Known Allergies Allergy Verified 07/06/19 13:29 Home Meds: Home Meds Diclofenac Sodium [Voltaren 1% Gel] 1 appful TOP QID PRN 05/28/19 [History] Furosemide [Lasix] 20 mg PO DAILY 05/28/19 [History] Gabapentin [Neurontin] 1,200 mg PO TID 05/28/19 [History] Lactulose 10 ml PO TID 05/28/19 [History] Lidocaine 5% [Lidoderm 5%] 1 patch TOP Q12HR PRN 05/28/19 [History] Melatonin 10 mg PO QPM 05/28/19 [History] Pantoprazole [ProTONIX] 40 mg PO DAILY 05/28/19 [History] Spironolactone [Aldactone] 50 mg PO DAILY 05/28/19 [History] hydrOXYzine HCL [hydrOXYzine] 50 mg PO BID 05/28/19 [History] oxyCODONE 5 mg PO Q8HR PRN 05/28/19 [History] tiZANidine HCl [Tizanidine HCl] 1 cap PO DAILY 07/06/19 [History] Past Medical History Cardiovascular History: Reports: Afib, Heart Failure Respiratory History: Reports: Asthma Gastrointestinal History: Reports: Cirrhosis, GERD, PUD Other Gastrointestinal History: ulcer Genitourinary History: Reports: Urinary Incontinence 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: Musculoskeletal History: Reports: Arthritis Other Musculoskeletal History: degenerative bone disease Neurological History: Reports: TIA Other Neuro History: medically induced coma for 10 days Psychiatric History: Reports: Anxiety Hematologic History: Reports: Other (See Below) Other Hematologic History: Hep C Immunologic History: Reports: Immunosuppression Oncologic (Cancer) History: Reports: Liver - Infectious Disease History Infectious Disease History: Reports: Hepatitis C - Past Surgical History HEENT Surgical History: Reports: Oral Surgery GI Surgical History: Reports: Bariatric Procedure Female Surgical History: Reports: Tubal Ligation Social & Family History - Family History Family Medical History: Noncontributory - Caffeine Use Caffeine Use: Reports: Soda, Tea - Living Situation & Occupation Living situation: Reports: ( incarcerated), with Family (Daughter , her , their 2 kids) Occupation: Unemployed ED ROS GENERAL - Review of Systems Review Of Systems: Unable To Obtain Reason Not Obtained: Patient will not or cannot talk ED EXAM, BEHAVIORAL HEALTH - Physical Exam Exam: See Below Exam Limited By: Altered Mental Status General Appearance: Alert, Other (She will not talk) Eye Exam: Bilateral Eye: EOMI Ears: Normal External Exam Nose: Normal Inspection Head: Atraumatic, Normocephalic Neck: Normal Inspection, Supple, Non-Tender Respiratory/Chest: No Respiratory Distress, Lungs Clear, Normal Breath Sounds Cardiovascular: Regular Rate, Rhythm, No Edema, No Murmur GI/Abdominal: Soft, Non-Tender, No Organomegaly, No Mass Back Exam: Normal Inspection Extremities: Normal Inspection Neurological: Alert, Other (She can move all 4 extremities. She will not or cannot talk to me.) Endotracheal Intubation - Endotracheal Intubation Time of Intubation: 17:30 ET Intubation Indication: Respiratory Failure, Airway Protection Preparation: Suction, Balloon Tested, BVM Set Up, Difficult Airway Equip Pre-Oxygenation: Other (High flow NC) Anesthesia Meds: Etomidate, Succinylcholine Placement: Orotracheal, Cuffed, Uncomplicated Placement Cords Visualized: Yes ETT Size In mm: 7.5 Number of Attempts: 1 Confirmed By: CO2 Indicator, Bilateral Breath Sounds, Chest Xray Tube Secured By: By RT EKG INTERPRETATION EKG Date: 07/14/19 Time: 16:53 Rhythm: NSR Rate (Beats/Min): 87 [place]: Normal P-Wave: Present QRS: Normal ST-T: Depressed (minimal depression in the inferior leads) COURSE, BEHAVIORAL HEALTH COMP - Course Vital Signs: Last Vital Signs Temp 97.0 F 07/14/19 15:32 Pulse Resp 23 H 07/14/19 15:32 BP 128/72 07/14/19 15:32 Pulse Ox 96 07/14/19 15:32 Orders, Labs, Meds: Active Orders 24 hr Category Date Time Status Cardiac Monitoring [RC] . DIRECTED Care 07/14/19 15:29 Active EKG Documentation Completion [RC] STAT Care 07/14/19 15:30 Active Oxygen Therapy [RC] PRN Care 07/14/19 15:29 Active Peripheral IV Care [RC] . DIRECTED Care 07/14/19 15:30 Active Chest 1V Frontal [CR] Routine Exams 07/14/19 17:50 Taken CORONAVIRUS COVID-19 PCR PHL Stat Lab 07/14/19 17:42 Ordered CULTURE URINE [RM] Stat Lab 07/14/19 15:50 Received LACTIC ACID [CHEM] Stat Lab 07/14/19 17:28 Ordered Sodium Chloride 0.9% [Saline Flush] Med 07/14/19 15:29 Active 10 ml FLUSH ASDIRECTED PRN Peripheral IV Insertion Adult [OM.PC] Stat Oth 07/14/19 15:29 Ordered Medication Orders Sodium Chloride (Saline Flush) 10 ml FLUSH ASDIRECTED PRN PRN Reason: Keep Vein Open Last Admin: 07/14/19 15:58 Dose: 10 ml Laboratory Tests 07/14/19 07/14/19 07/14/19 Range/Units 15:50 15:58 16:05 WBC 6.98 (3.98-10.04) K/mm3 RBC 4.78 (3.98-5.22) M/mm3 Hgb 15.7 D (11.2-15.7) gm/dl Hct 46.3 H (34.1-44.9) % MCV 96.9 H (79.4-94.8) fl MCH 32.8 H (25.6-32.2) pg MCHC 33.9 (32.2-35.5) g/dl RDW Std Deviation 55.5 H (36.4-46.3) fL Plt Count 158 L (182-369) K/mm3 MPV 11.2 (9.4-12.3) fl Neut % (Auto) 74.7 H (34.0-71.1) % Lymph % (Auto) 13.9 L (19.3-51.7) % [place] % (Auto) 11.2 (4.7-12.5) % Eos % (Auto) 0.1 L (0.7-5.8) Baso % (Auto) 0.1 (0.1-1.2) % Neut # (Auto) 5.21 (1.56-6.13) K/mm3 Lymph # (Auto) 0.97 L (1.18-3.74) K/mm3 [place] # (Auto) 0.78 H (0.24-0.36) K/mm3 Eos # (Auto) 0.01 L (0.04-0.36) K/mm3 Baso # (Auto) 0.01 (0.01-0.08) K/mm3 Sodium (136-145) mEq/L Potassium (3.5-5.1) mEq/L Chloride (98-107) mEq/L Carbon Dioxide (21-32) mEq/L Anion Gap (5-15) BUN (7-18) mg/dL Creatinine (0.55-1.02) mg/dL Est Cr Clr Drug Dosing mL/min Estimated GFR (MDRD) (>60) mL/min BUN/Creatinine Ratio (14-18) Glucose (80-115) mg/dL Calcium (8.5-10.1) mg/dL Magnesium (1.8-2.4) mg/dl Total Bilirubin (0.2-1.0) mg/dL AST (15-37) U/L ALT (14-59) U/L Alkaline Phosphatase (46-116) U/L Ammonia (11-32) umol/L Troponin I (0.00-0.056) ng/mL C-Reactive Protein (<1.0) mg/dL Total Protein (6.4-8.2) g/dl Albumin (3.4-5.0) g/dl Globulin gm/dL Albumin/Globulin Ratio (1-2) Lipase (73-393) U/L Urine Color Yellow (Yellow) Urine Appearance Cloudy H (Clear) Urine pH 7.0 (5.0-8.0) Ur Specific [place] 1.025 (1.005-1.030) Urine Protein Negative (Negative) Urine Glucose (UA) Negative (Negative) Urine Ketones Negative (Negative) Urine Occult Blood Negative (Negative) Urine Nitrite Positive H (Negative) Urine Bilirubin Negative (Negative) Urine Urobilinogen 1.0 (0.2-1.0) Ur Leukocyte Esterase 2+ H (Negative) Urine RBC 0-5 (0-5) /hpf Urine WBC >100 H (0-5) /hpf Urine WBC Clumps Few (NOT SEEN) /hpf Ur Squamous Epith Cells 5-10 H (0-5) /hpf Urine Bacteria Many H (FEW) /hpf Urine Mucus Not seen (FEW) /hpf Urine Opiates Screen Negative (LGHMGF=504) Ur Buprenorphine Scrn Negative (CUTOFF=10) Ur Oxycodone Screen Negative (RHA7FJ=253) Urine Methadone Screen Negative (WEVJEM=383) Ur Propoxyphene Screen Negative (VERIKQ=707) Ur Barbiturates Screen Negative (BYLTTL=365) Ur Tricyclics Screen Negative (BAXGUU=272) Ur Phencyclidine Scrn Negative (CUTOFF=25) Ur Amphetamine Screen Negative (IMVKQS=366) U Methamphetamines Scrn Negative (AOFKYQ=564) U Benzodiazepines Scrn Negative (TUHHHG=782) U Cocaine Metab Screen Negative (HXWGMJ=792) U Marijuana (THC) Screen Presumptive positive H (CUTOFF=50) Ethyl Alcohol (0.00) gm% 07/14/19 07/14/19 Range/Units 16:05 16:05 WBC (3.98-10.04) K/mm3 RBC (3.98-5.22) M/mm3 Hgb (11.2-15.7) gm/dl Hct (34.1-44.9) % MCV (79.4-94.8) fl MCH (25.6-32.2) pg MCHC (32.2-35.5) g/dl RDW Std Deviation (36.4-46.3) fL Plt Count (182-369) K/mm3 MPV (9.4-12.3) fl Neut % (Auto) (34.0-71.1) % Lymph % (Auto) (19.3-51.7) % [place] % (Auto) (4.7-12.5) % Eos % (Auto) (0.7-5.8) Baso % (Auto) (0.1-1.2) % Neut # (Auto) (1.56-6.13) K/mm3 Lymph # (Auto) (1.18-3.74) K/mm3 [place] # (Auto) (0.24-0.36) K/mm3 Eos # (Auto) (0.04-0.36) K/mm3 Baso # (Auto) (0.01-0.08) K/mm3 Sodium 141 (136-145) mEq/L Potassium 4.6 (3.5-5.1) mEq/L Chloride 107 (98-107) mEq/L Carbon Dioxide 22 (21-32) mEq/L Anion Gap 16.6 H (5-15) BUN 21 H (7-18) mg/dL Creatinine 1.2 H (0.55-1.02) mg/dL Est Cr Clr Drug Dosing 41.97 mL/min Estimated GFR (MDRD) 46 (>60) mL/min BUN/Creatinine Ratio 17.5 (14-18) Glucose 111 (80-115) mg/dL Calcium 9.4 (8.5-10.1) mg/dL Magnesium 2.0 (1.8-2.4) mg/dl Total Bilirubin 2.2 H (0.2-1.0) mg/dL AST 82 H (15-37) U/L ALT 69 H (14-59) U/L Alkaline Phosphatase 145 H (46-116) U/L Ammonia 149 H (11-32) umol/L Troponin I < 0.017 (0.00-0.056) ng/mL C-Reactive Protein 0.9 (<1.0) mg/dL Total Protein 9.2 H (6.4-8.2) g/dl Albumin 3.3 L (3.4-5.0) g/dl Globulin 5.9 gm/dL Albumin/Globulin Ratio 0.6 L (1-2) Lipase 146 (73-393) U/L Urine Color (Yellow) Urine Appearance (Clear) Urine pH (5.0-8.0) Ur Specific [place] (1.005-1.030) Urine Protein (Negative) Urine Glucose (UA) (Negative) Urine Ketones (Negative) Urine Occult Blood (Negative) Urine Nitrite (Negative) Urine Bilirubin (Negative) Urine Urobilinogen (0.2-1.0) Ur Leukocyte Esterase (Negative) Urine RBC (0-5) /hpf Urine WBC (0-5) /hpf Urine WBC Clumps (NOT SEEN) /hpf Ur Squamous Epith Cells (0-5) /hpf Urine Bacteria (FEW) /hpf Urine Mucus (FEW) /hpf Urine Opiates Screen (NKNYAJ=049) Ur Buprenorphine Scrn (CUTOFF=10) Ur Oxycodone Screen (KTO3UR=840) Urine Methadone Screen (ALEATM=197) Ur Propoxyphene Screen (TMOBOD=337) Ur Barbiturates Screen (NHZDKN=026) Ur Tricyclics Screen (WGEGYT=113) Ur Phencyclidine Scrn (CUTOFF=25) Ur Amphetamine Screen (JVYDUS=752) U Methamphetamines Scrn (VOKGTH=192) U Benzodiazepines Scrn (DZCMTX=194) U Cocaine Metab Screen (NLURQY=374) U Marijuana (THC) Screen (CUTOFF=50) Ethyl Alcohol 0.00 (0.00) gm% Medications Generic Name Dose Route Start Last Admin Trade Name Freq PRN Reason Stop Dose Admin Sodium Chloride 10 ml 07/14/19 15:29 07/14/19 15:58 Saline Flush FLUSH 10 ml ASDIRECTED PRN Administration Keep Vein Open Discontinued Medications Generic Name Dose Route Start Last Admin Trade Name Freq PRN Reason Stop Dose Admin Lorazepam 0.5 mg 07/14/19 16:28 07/14/19 16:49 Ativan IVPUSH 07/14/19 16:29 0.5 mg ONETIME ONE Administration Re-Assessment/Re-Exam: I ordered an IV saline lock, oxygen, CT of her head, labs, and drug screen. Her CT shows nothing acute is appreciated on noncontrast head CT study. Study is felt to be stable from previous head CT exam. Her CBC looks good. Her anion gap is elevated at 16.6. Her creatinine was elevated at 1.2. Her total bili was elevated at 2.2. Last week it was 1.1. Her AST was elevated at 82. Her ALT was elevated at 69. Her alk phos was elevated at 145. Her ammonia is elevated at 149. Her troponin is negative. Her CRP is negative. Her lipase is normal. Her UA shows a possible UTI. I ordered a culture. I did give her some ativan 0.5mg IV so she would relax for the CT. Later her oxygen saturations went down into the upper 80s. I was also worried about her airway. I decided to intubate the patient. I put a 7.5 ET tube in without difficulty. I called [facility] and talked with the hydro plant site manager Dr Whiting and she accepted the patient. She will by going by helicopter. Departure - Departure Time of Disposition: 18:00 Disposition: DC/Tfer to [facility] 02 Condition: Critical Clinical Impression: Hepatic encephalopathy, Liver cancer Respiratory failure Qualifiers: Chronicity: acute Respiratory failure complication: hypoxia Qualified Code(s): J96.01 - Acute respiratory failure with hypoxia - Discharge Information Referrals: PCP,Unknown [Ordering Only Provider] - Forms: ED Department Discharge Sepsis Event Note - Focused Exam Vital Signs: Vital Signs Temp Resp BP Pulse Ox 07/14/19 15:32 97.0 F 23 H 128/72 96 Date Exam was Performed: 07/14/19 Time Exam was Performed: 17:50 - My Orders Last 24 Hours: My Active Orders 07/14/19 15:29 Cardiac Monitoring [RC] . DIRECTED Oxygen Therapy [RC] PRN Sodium Chloride 0.9% [Saline Flush] 10 ml FLUSH ASDIRECTED PRN Peripheral IV Insertion Adult [OM.PC] Stat 07/14/19 15:30 EKG Documentation Completion [RC] STAT Peripheral IV Care [RC] . DIRECTED 07/14/19 15:50 CULTURE URINE [RM] Stat 07/14/19 17:28 LACTIC ACID [CHEM] Stat 07/14/19 17:42 CORONAVIRUS COVID-19 PCR PHL Stat 07/14/19 17:50 Chest 1V Frontal [CR] Routine - Assessment/Plan Last 24 Hours: My Active Orders 07/14/19 15:29 Cardiac Monitoring [RC] . DIRECTED Oxygen Therapy [RC] PRN Sodium Chloride 0.9% [Saline Flush] 10 ml FLUSH ASDIRECTED PRN Peripheral IV Insertion Adult [OM.PC] Stat 07/14/19 15:30 EKG Documentation Completion [RC] STAT Peripheral IV Care [RC] . DIRECTED 07/14/19 15:50 CULTURE URINE [RM] Stat 07/14/19 17:28 LACTIC ACID [CHEM] Stat 07/14/19 17:42 CORONAVIRUS COVID-19 PCR PHL Stat 07/14/19 17:50 Chest 1V Frontal [CR] Routine
[2019-07-14] MEDS ORDERED: LORazepam 2 MG/ML SDV IVPUSH ONE (16:28)
--- NOTE | 2019-07-14 16:45 | CT ---
Head CT Technique: Multiple axial sections through the brain were obtained. Intravenous contrast was not utilized. Comparison: Prior head CT study of 05/28/19. Findings: Ventricles along with basal cisterns and sulci over the convexities are within normal limits for the patient's age. No abnormal parenchymal densities are seen. No evidence of intracranial hemorrhage. No midline shift or mass effect is appreciated. Bone window settings were reviewed. Visualized mastoid sinuses and paranasal sinuses show nothing acute. No acute calvarial abnormality is appreciated. Impression: 1. Nothing acute is appreciated on noncontrast head CT study. 2. Study is felt to be stable from previous head CT exam. Diagnostic code #1 Study was dictated in MDT
[2019-07-14] MEDS ORDERED: Etomidate 2 MG/ML 20 ML SDV IVPUSH ONE (17:15)
[2019-07-14] MEDS ORDERED: Succinylcholine 200 MG/10 ML MDV IV ONE (17:15)
[2019-07-14] MEDS ORDERED: Midazolam 1 MG/ML 5 ML SDV IVPUSH ONE ×2 (17:25→17:40)
--- NOTE | 2019-07-14 18:53 | CR ---
Chest: Portable supine view of the chest was obtained. Comparison: No prior chest imaging is available. Endotracheal tube is seen with tip lying midway between the clavicle and kelvin. Nasogastric tube is seen with tip lying within the stomach. Lungs are clear with no acute parenchymal change. Bony structures are grossly intact. Impression: 1. Satisfactory position of endotracheal tube and nasogastric tube. 2. Nothing acute is appreciated on portable chest x-ray. Diagnostic code #2 This report was dictated in MDT
== END 2019-07-14 18:20 ==
LOC: JD.ED 15:25
DX: J96.01 Acute respiratory failure with hypoxia (principal); K72.90 Hepatic failure, unspecified without coma; C22.8 Malignant neoplasm of liver, primary, unspecified as to type; I48.91 Unspecified atrial fibrillation; J45.909 Unspecified asthma, uncomplicated; I50.9 Heart failure, unspecified; K21.9 Gastro-esophageal reflux disease without esophagitis; Z79.899 Other long term (current) drug therapy; Z86.73 Personal history of transient ischemic attack (TIA), and cerebral infarction without residual deficits; F41.9 Anxiety disorder, unspecified
CPT/HCPCS: 31500; 36415; 43752; 51702; 70450; 71045; 80053; 80306; 80307; 81001; 82140; 83605; 83690; 83735; 84484; 85025; 86140; 87086; 87635; 93005; 96374; 96375; 99285; J0330; J2060; J2250; J3490; 87088; 87186; 93010; 99283; U0002